=== PATIENT | female | born 1985 | race Caucasian/White ===

== ENCOUNTER 2016-08-15 16:18 | Outpatient (CLI) | payer OTHER | END 2016-08-15 16:19 | disposition EMS.NT | LOC: EMS 16:18 | PROVIDERS: ATTEND Surgery | DX: M54.2 Cervicalgia (principal); V59.00XA Driver of pick-up truck or van injured in collision with unspecified motor vehicles in nontraffic accident, initial encounter; Y92.481 Parking lot as the place of occurrence of the external cause ==

== ENCOUNTER 2016-08-15 17:24 | Emergency (ER) | payer OTHER ==
[2016-08-15] MEDS ORDERED: IBUPROFEN 600 MG TABLET PO STA (19:29)
== END 2016-08-15 19:44 | disposition home or self-care (01) ==
DX: S16.1XXA Strain of muscle, fascia and tendon at neck level, initial encounter (principal); V43.52XA Car driver injured in collision with other type car in traffic accident, initial encounter; Y92.488 Other paved roadways as the place of occurrence of the external cause; F17.200 Nicotine dependence, unspecified, uncomplicated

== ENCOUNTER 2017-05-30 09:17 | Day surgery (SDC) | payer OTHER ==
[2017-05-30] MEDS ORDERED: LACTATED RINGERS 1,000 ML IV ONE ×2 (09:51→12:56)
[2017-05-30] MEDS ORDERED: ceFAZolin 2 GM/50 ML 2 GM/50 ML BAG IV ONE (09:52)
[2017-05-30 10:15] LABS: HCG UR QUAL NEGATIVE
[2017-05-30] MEDS ORDERED: SCOPOLAMINE PATCH TOP ONE (10:25)
[2017-05-30] MEDS ORDERED: BUPIVACAINE 0.25% PF 30 ML VIAL SUBQ ONE ×2 (12:42)
[2017-05-30] MEDS ORDERED: ONDANSETRON 4 MG/2 ML VIAL IVP ONE (12:45)
[2017-05-30] MEDS ORDERED: KETOROLAC 30 MG/ML VIAL IVP ONE (12:45)
[2017-05-30] MEDS ORDERED: fentaNYL 100 MCG/2 ML VIAL IVP ONE (12:45)
[2017-05-30] MEDS ORDERED: DEXAMETHASONE 4 MG/ML VIAL IVP ONE (12:45)
[2017-05-30] MEDS ORDERED: PROPOFOL 200 MG/20 ML VIAL IVP ONE (12:45)
[2017-05-30] MEDS ORDERED: LIDOCAINE-MPF 2% 5 ML VIAL IM ONE (12:45)
[2017-05-30] MEDS ORDERED: MIDAZOLAM 2 MG/2 ML VIAL IVP ONE (12:45)
--- NOTE | 2017-05-30 13:57 | OPERATIVE REPORT ---
Operative Report - General Procedure Date: 05/30/17 Planned Procedure: Supraumbilical herniorrhaphy Pre-Op Diagnosis: Supraumbilical hernia Procedure Performed: Umbilical herniorrhaphy with mesh Post Op Diagnosis: Umbilical hernia - Procedure Note Primary Surgeon: Ryan Contreras MD Anesthesia Provider: Raymond Zepeda CRNA Anesthesia Technique: General LMA, Local (30 mL 1/4% marcaine) IV Fluids (mL): 1,200 Estimated Blood Loss (mL): 20 Complications: None. - Other Other Information/Narrative: OPERATIVE DESCRIPTION/REPORT: After verbal and written informed consent was obtained detailing the risks of infection, bleeding requiring transfusion with its risks, nerve injury, and , and after I met with the patient confirming the surgery and the site of the surgery, the patient was brought to the operative suite and placed supine on the operating table. Great care was taken to avoid pressure points to prevent pressure necrosis or nerve injury. Monitoring devices were applied along with TEDs and pneumatic compressive stockings (to prevent DVT). The patient received preoperative antibiotics for surgical prophylaxis. Raymond Zepeda sedated and anesthetized the patient for the entire procedure. The patient was prepped and draped in the usual sterile manner. With the patient draped my initials were clearly visible. A "time in" then confirmed that the paitient was identified with 3 identifiers (name, date and medical record number), the history and physical was in the chart, the signed consent confirming the procedure was in the chart, the patient was in the correct position, the aforementioned prophylactic measures were in place or given, we had the correct personnel and equipment to complete the procedure and that anesthesia, surgery and nursing were given an opportunity to express any concerns. With the agreement of everyone in the room, we proceeded with the operation. After injecting the area with % Marcaine, a supraumbilical midline incision was made over the bulge and dissection was carried down to the hernia sac using a combination of Metzenbaum scissors and Bovie electrocautery. The sac was cleared of overlying adherent tissue, and the fascial defect was delineated. The fascia was cleared of any adherent tissue for a distance 1.5 cm from the defect. The sac was excised using Bovie electrocautery. The defect was closed using a 8 cm (3.2 inch) Ventralex ST hernia patch (Ref#[id number], Lot#[id number], use by 2018-09-04). This was secured to the fascia using interrupted 2-0 PDS sutures superiorly and inferiorly utilizing the straps and trimming the excess strap. Xavi moreno closed the fascia over the mesh using interrupted O PDS sutures. Five sutures were used. Meticulous hemostasis was obtained using Bovie electrocautery. The subcutaneous tissues were approximated using interrupted 3- 0 Vicryl sutures. 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 The skin incision was approximated with a running subcuticular 4-0 Monocryl. After the prep was washed off, benzoin and steristrips were applied. A dressing was then applied. At this point a time out was performed that confirmed that all the counts were correct, the procedure that was performed, the blood loss, the IV fluids administered, and the patients condition. Having tolerated the procedure well, the patient was subsequently taken to recovery room in good and stable condition.
[2017-05-30] MEDS ORDERED: oxyCOD/ACETAMIN 5 MG/325 MG TABLET PO ONE (14:34)
[2017-05-30 14:35] VITALS: BP 134/84
== END 2017-05-30 09:18 | disposition home or self-care (01) ==
LOC: SDS 09:17
PROVIDERS: ATTEND Surgery
PROC: 0WUF0JZ Supplement Abdominal Wall with Synthetic Substitute, Open Approach (ICD-10-PCS; principal; 2017-05-30 10:30)
DX: K42.9 Umbilical hernia without obstruction or gangrene (principal); F17.210 Nicotine dependence, cigarettes, uncomplicated
CPT/HCPCS: 49585; 81025; A9270; C1781; J0690; J3490; J7120

== ENCOUNTER 2020-01-24 15:02 | Outpatient (CLI) | payer OTHER ==
--- NOTE | 2020-01-24 16:23 | MRI Report ---
PROCEDURE: Lumbar Spine W/O INDICATIONS: LOW BACK PAIN, SCIATICA TECHNIQUE: Noncontrast sagittal T1 spin echo and T2 fast echo, sagittal STIR, axial T1 and T2 fast spin echo thr ough the lumbar spine. In cases with scoliosis, additional coronal T2 fast spin echo may be performe d. COMPARISON: None. FINDINGS: Image quality: Excellent. Alignment and Curvature: Normal lumbar vertebral body height and alignment. Bone Marrow: No suspicious focal marrow signal abnormality or bone marrow edema. Spinal Cord: Normal position and appearance of the conus. Partially visualized distal cord is within normal limits. Regional Soft Tissues: Prevertebral and paraspinous soft tissues are within normal limits. The includ ed unenhanced retroperitoneal visceral structures demonstrate no acute finding. T12-L1: No spinal canal or neural foraminal stenosis. No significant degenerative changes. L1-L2: No spinal canal or neural foraminal stenosis. No significant degenerative changes. L2-L3: No spinal canal or neural foraminal stenosis. No significant degenerative changes. L3-L4: No spinal canal or neural foraminal stenosis. No significant degenerative changes. L4-L5: Disc bulge flattens the ventral thecal sac. No mass effect upon the traversing L5 nerve root s. No neural foraminal stenosis. L5-S1: There is diffuse disc bulge with a superimposed broad-based posterior disc protrusion. Disc material flattens and indents the ventral thecal sac due to disc material also displaces the descendi ng S1 nerve roots within both subarticular zones, more pronounced on the left. Foraminal components o f the disc bulge produce mild neural foraminal narrowing on the left in conjunction with mild facet h ypertrophy. IMPRESSION: Disc bulge and protrusion at L5-S1 producing mass effect upon the descending S1 nerve roots, left gre ater than right. Correlate for any corresponding radicular symptoms. Reviewed by: Kirby Whitley MD on 01/24/2020 4:21 PM PDT Approved by: Kirby Whitley MD on 01/24/2020 4:21 PM PDT Station ID: [id number]
== END 2020-01-24 15:03 | disposition home or self-care (01) ==
LOC: DI 15:02
PROVIDERS: ATTEND Family Medicine
DX: M51.17 Intervertebral disc disorders with radiculopathy, lumbosacral region (principal)
CPT/HCPCS: 72148